=== PATIENT | female | born 1960 | race Caucasian/White ===

== ENCOUNTER 2023-05-05 07:17 | Emergency (ER) | payer OTHER, MEDICAID ==
[~2023-05-05] VITALS: Ht 121.9 cm; Wt 49.0 kg
[2023-05-05 07:25] VITALS: BP 144/75; PULSE 65; RESP 18; TEMP 97.4; O2SAT 98
[2023-05-05] MEDS ORDERED: CLON1TAB PO (08:36)
[2023-05-05] MEDS ORDERED: NAPR-1704 PO (08:36)
[2023-05-05 09:03] VITALS: BP 135/75; PULSE 65; RESP 18; TEMP 98; O2SAT 98
== END 2023-05-05 09:03 | disposition home or self-care (01) ==
LOC: MED 07:17
DX: S16.1XXA Strain of muscle, fascia and tendon at neck level, initial encounter (principal); V49.88XA Car occupant (driver) (passenger) injured in other specified transport accidents, initial encounter; Y93.89 Activity, other specified; Y92.89 Other specified places as the place of occurrence of the external cause; Y99.8 Other external cause status
CPT/HCPCS: 99283

== ENCOUNTER → 2023-06-18 08:40 | Emergency (ER) | payer MEDICAID, OTHER ==
[~2023-06-18] VITALS: Ht 121.9 cm; Wt 48.1 kg
[~2023-06-18 08:40] MED LIST: CLON1TAB PO; IBUP-1842 PO; KETOROLAC 60 MG/2 ML VIAL IM ONE; NAPR-1704 PO; PRED50TA2 PO
[2023-06-18 08:41] VITALS: BP 152/73; PULSE 61; RESP 15; TEMP 97; O2SAT 96
[2023-06-18 09:58] VITALS: BP 152/73; PULSE 61; RESP 15; TEMP 97; O2SAT 96
== END | disposition home or self-care (01) ==
LOC: MED 08:40
DX: R05.9 Cough, unspecified (principal); I10 Essential (primary) hypertension; Z79.899 Other long term (current) drug therapy; Z98.890 Other specified postprocedural states
CPT/HCPCS: 96372; 99283; J1885

== ENCOUNTER 2023-06-29 18:38 | Inpatient (IN) | payer MEDICAID, OTHER ==
[~2023-06-29] VITALS: Ht 121.9 cm; Wt 47.6 kg
[~2023-06-29 18:38] MED LIST changes: -KETOROLAC 60 MG/2 ML VIAL IM ONE
[2023-06-29 18:52] VITALS: BP 111/79; PULSE 75; RESP 18; TEMP 98.5; O2SAT 98
[2023-06-29 19:47] LABS: BASOPHILS # (AUTO) 0.1 K/uL (0.00-0.22); BASOPHILS % (AUTO) 0.4 % (0.0-2.0); EOSINOPHILS # (AUTO) 0.1 K/uL (0-0.4); EOSINOPHILS % (AUTO) 0.4 % (0.0-4.0); HEMATOCRIT 40.2 % (36-48); HEMOGLOBIN 13.6 g/dL (12.0-16.0); LYMPHOCYTES # (AUTO) 3.6 K/uL (2.5-16.5); LYMPHOCYTES % (AUTO) 16.7 % (20.5-51.1); MEAN CORPUSCULAR HEMOGLOBIN 29 pg (27-31); MEAN CORPUSCULAR HGB CONC 34 g/dL (33-37); MEAN CORPUSCULAR VOLUME 86.3 fL (80-94); MONOCYTES # (AUTO) 1.1 K/uL (0.8-1.0); MONOCYTES % (AUTO) 5.3 % (1.7-9.3); NEUTROPHILS # (AUTO) 16.5 K/uL (1.8-7.7); NEUTROPHILS % (AUTO) 77.2 % (42.2-75.2); PLATELET COUNT (AUTO) 433 K/uL (140-450); RED BLOOD CELL COUNT(AUTO) 4.66 MIL/uL (4.20-5.40); RED CELL DISTRIBUTION WIDTH 14.4 % (11.6-13.7); WHITE BLOOD COUNT (AUTO) 21.4 K/uL (4.8-10.8)
[2023-06-29 20:03] LABS: LIPASE 41 U/L (16-77)
[2023-06-29 20:08] LABS: ALBUMIN 3.5 g/dL (3.4-5.0); ANION GAP 15.1 (8-16); CALCIUM 9.2 mg/dL (8.5-10.1); CARBON DIOXIDE 24.2 mmol/L (21-32); CREATININE 1.4 mg/dL (0.6-1.3); POTASSIUM 3.3 mmol/L (3.5-5.1); TOTAL BILIRUBIN 0.6 mg/dL (0.0-1.0); TOTAL PROTEIN, SERUM 7.2 g/dL (6.4-8.2)
[2023-06-29] MEDS ORDERED: ONDANSETRON 4 MG/2 ML VIAL IVP ONE (21:00)
[2023-06-29] MEDS ORDERED: NACL 0.9% 1,000 ML IV ONE (21:00)
[2023-06-29] MEDS ORDERED: NACL 0.9% 1,000 ML IV SCH (22:20)
[2023-06-29] MEDS ORDERED: MORPHINE SULFATE 4 MG/ML SYR IVP ONE (22:40)
[2023-06-29 22:42] LABS: APPEARANCE,URINE CLEAR (CLEAR); BILIRUBIN,URINE NEGATIVE (NEGATIVE); BLOOD, URINE TRACE-L (NEGATIVE); COLOR,URINE YELLOW (YELLOW); LEUKOCYTE ESTERASE ,URINE NEGATIVE (NEGATIVE); NITRITE, URINE NEGATIVE (NEGATIVE); PH,URINE 7.5 (5.0-9.0); PROTEIN,URINE NEGATIVE (NEGATIVE); UGLUCOSE NEGATIVE (NEGATIVE); UROBILINOGEN,URINE 0.2 EU/dL (0.2 - 1)
[2023-06-29 22:50] LABS: BACTERIA,URINE 10-30 (MOD) /HPF (None Seen); MUCUS,URINE 1+ /LPF (None Seen); SQUAMOUS EPITHELIAL CELL,UR 0-3 (FEW) /LPF (0-3 (FEW)); WBC,URINE 0-5 /HPF (0-5)
[2023-06-29] MEDS ORDERED: cefTRIAXone 1,000 MG VIAL ONE (22:54)
[2023-06-29] MEDS ORDERED: ATOR20TA PO (23:21)
[2023-06-29] MEDS ORDERED: SYN.05 PO (23:22)
[2023-06-29] MEDS ORDERED: AMLO5TAB PO (23:24)
[2023-06-29] MEDS ORDERED: HYDR-4004 PO (23:26)
[2023-06-29] MEDS ORDERED: ZOLPIDEM 5 MG TAB PO PRN (23:40)
[2023-06-29] MEDS ORDERED: HYDROcodone/APAP 5/325 MG 1 TAB TAB PO PRN (23:40)
[2023-06-29] MEDS ORDERED: MAG SULF 2000 MG/WATER PREMIX 50 ML IV PRN (23:40)
[2023-06-29] MEDS ORDERED: ACETAMINOPHEN 325 MG TAB PO PRN (23:40)
[2023-06-29] MEDS ORDERED: LORazepam 1 MG TAB PO PRN (23:40)
[2023-06-29] MEDS ORDERED: MAGNESIUM OXIDE 400 MG TAB PO PRN (23:40)
[2023-06-29] MEDS ORDERED: POTASSIUM CHLORIDE 10 MEQ TABER PO PRN (23:40)
[2023-06-29] MEDS ORDERED: ONDANSETRON 4 MG/2 ML VIAL IVP PRN (23:40)
[2023-06-29] MEDS ORDERED: KCL 20 MEQ IN 100 mL PREMIX 200 ML IV PRN (23:40)
[2023-06-30] MEDS: LEVOFLOXACIN 500 MG/D5W PREMIX 100 ML IV SCH ×2 (01:06→23:26)
[2023-06-30] MEDS: LACTATED RINGERS 1,000 ML IV SCH ×2 (03:04→18:04)
[2023-06-30 07:32] LABS: BASOPHILS % (AUTO) 0.3 % (0.0-2.0); EOSINOPHILS % (AUTO) 0.2 % (0.0-4.0); HEMATOCRIT 36.4 % (36-48); HEMOGLOBIN 12.3 g/dL (12.0-16.0); LYMPHOCYTES # (AUTO) 2.5 K/uL (2.5-16.5); LYMPHOCYTES % (AUTO) 19.9 % (20.5-51.1); MEAN CORPUSCULAR HEMOGLOBIN 29 pg (27-31); MEAN CORPUSCULAR HGB CONC 34 g/dL (33-37); MEAN CORPUSCULAR VOLUME 86.9 fL (80-94); MONOCYTES % (AUTO) 8.3 % (1.7-9.3); NEUTROPHILS # (AUTO) 8.8 K/uL (1.8-7.7); NEUTROPHILS % (AUTO) 71.3 % (42.2-75.2); PLATELET COUNT (AUTO) 335 K/uL (140-450); RED BLOOD CELL COUNT(AUTO) 4.19 MIL/uL (4.20-5.40); RED CELL DISTRIBUTION WIDTH 14.7 % (11.6-13.7); WHITE BLOOD COUNT (AUTO) 12.4 K/uL (4.8-10.8)
[2023-06-30 07:51] LABS: ALBUMIN 2.7 g/dL (3.4-5.0); ANION GAP 10.7 (8-16); CALCIUM 7.8 mg/dL (8.5-10.1); CARBON DIOXIDE 24.1 mmol/L (21-32); CREATININE 0.7 mg/dL (0.6-1.3); MAGNESIUM 1.8 mg/dL (1.8-2.4); PHOSPHORUS 3.7 mg/dL (2.5-4.9); POTASSIUM 3.8 mmol/L (3.5-5.1); TOTAL BILIRUBIN 0.4 mg/dL (0.0-1.0); TOTAL PROTEIN, SERUM 6.1 g/dL (6.4-8.2)
[2023-06-30 07:55] VITALS: BP 133/95; PULSE 74; PULSE 96; RESP 18; TEMP 98; O2SAT 97
[2023-06-30] MEDS: DOCUSATE SODIUM 100 MG GELCAP PO SCH (09:00)
[2023-06-30] MEDS: LEVOTHYROXINE 0.05 MG TAB PO SCH (09:18)
[2023-06-30 12:00] VITALS: BP 129/66; PULSE 66; PULSE 95; RESP 18; TEMP 98.3; O2SAT 97
[2023-06-30 16:00] VITALS: BP 132/66; PULSE 70; PULSE 77; RESP 18; TEMP 97.9; O2SAT 96
[2023-06-30 20:00] VITALS: BP 117/49; PULSE 65; PULSE 70; RESP 18; TEMP 97.6; O2SAT 94
[2023-07-01] VITALS: BP 90/53; PULSE 58; PULSE 64; RESP 18; TEMP 96.8; O2SAT 97
[2023-07-01] MEDS: LACTATED RINGERS 1,000 ML IV SCH (00:40)
[2023-07-01 04:00] VITALS: BP 124/63; PULSE 64; PULSE 68; RESP 18; TEMP 97.6; O2SAT 96
[2023-07-01 06:51] LABS: BASOPHILS % (AUTO) 0.6 % (0.0-2.0); EOSINOPHILS # (AUTO) 0.1 K/uL (0-0.4); EOSINOPHILS % (AUTO) 1.6 % (0.0-4.0); HEMATOCRIT 36.1 % (36-48); HEMOGLOBIN 12.3 g/dL (12.0-16.0); LYMPHOCYTES # (AUTO) 2.8 K/uL (2.5-16.5); LYMPHOCYTES % (AUTO) 43.4 % (20.5-51.1); MEAN CORPUSCULAR HEMOGLOBIN 30 pg (27-31); MEAN CORPUSCULAR HGB CONC 34 g/dL (33-37); MEAN CORPUSCULAR VOLUME 86.8 fL (80-94); MONOCYTES # (AUTO) 0.5 K/uL (0.8-1.0); MONOCYTES % (AUTO) 8.4 % (1.7-9.3); NEUTROPHILS # (AUTO) 2.9 K/uL (1.8-7.7); PLATELET COUNT (AUTO) 317 K/uL (140-450); RED BLOOD CELL COUNT(AUTO) 4.15 MIL/uL (4.20-5.40); RED CELL DISTRIBUTION WIDTH 14.5 % (11.6-13.7); WHITE BLOOD COUNT (AUTO) 6.4 K/uL (4.8-10.8)
[2023-07-01 07:32] LABS: ALBUMIN 2.9 g/dL (3.4-5.0); ANION GAP 8.9 (8-16); CARBON DIOXIDE 26.7 mmol/L (21-32); CREATININE 0.7 mg/dL (0.6-1.3); MAGNESIUM 1.9 mg/dL (1.8-2.4); PHOSPHORUS 2.8 mg/dL (2.5-4.9); POTASSIUM 3.6 mmol/L (3.5-5.1); TOTAL BILIRUBIN 0.4 mg/dL (0.0-1.0); TOTAL PROTEIN, SERUM 6.4 g/dL (6.4-8.2)
[2023-07-01 08:00] VITALS: BP 133/63; PULSE 63; PULSE 65; RESP 16; RESP 18; TEMP 97.1; O2SAT 96
[2023-07-01] MEDS ORDERED: LEVO-481 PO (08:11)
[2023-07-01] MEDS ORDERED: METR-435 PO (08:12)
[2023-07-01] MEDS: DOCUSATE SODIUM 100 MG GELCAP PO SCH (08:30)
[2023-07-01] MEDS: LEVOTHYROXINE 0.05 MG TAB PO SCH (08:30)
[2023-07-01 11:07] VITALS: BP 133/63; PULSE 63; RESP 16; TEMP 97.1
== END 2023-07-01 11:35 | disposition home or self-care (01) | DRG 720 ==
LOC: MED 18:38 → MTU 23:37
PROVIDERS: ADMIT Hospitalist; ATTEND Hospitalist
DX: A41.9 Sepsis, unspecified organism (principal); K56.600 Partial intestinal obstruction, unspecified as to cause; N17.9 Acute kidney failure, unspecified; A04.9 Bacterial intestinal infection, unspecified; N28.9 Disorder of kidney and ureter, unspecified; E78.00 Pure hypercholesterolemia, unspecified; I10 Essential (primary) hypertension; E87.6 Hypokalemia
CPT/HCPCS: 36415; 71045; 80053; 81001; 83605; 83690; 83735; 83880; 84100; 84484; 85025; 87040; 87081; 87086; 93005; 96361; 96365; 96368; 96375; 99291; J0696; J1644; J1956; J2270; J2405; Q9967